=== PATIENT | male | born 1975 | race Caucasian/White ===

== ENCOUNTER 2016-10-21 17:39 | Emergency (ER) | payer MEDICAID, OTHER ==
[~2016-10-21] VITALS: Ht 177.8 cm; Wt 95.3 kg
--- NOTE | 2016-10-21 17:40 | NUR ---
PT CAME TO ER C/O SUICIDAL IDEATION PLAN IS TO OD WITH PILLS WANTS TO HURT HIMSELF. REMOVED PTS BELONINGS. PLACED ON MONITOR . VSS.
--- NOTE | 2016-10-21 18:00 | NUR ---
URINE COLLECTED SENT TO LAB
[2016-10-21 18:06] LABS: BASOPHILS # (AUTO) 0.1 /CMM (0.0-0.2); BASOPHILS % (AUTO) 0.9 % (0.0-2.0); EOSINOPHILS # (AUTO) 0.1 /CMM (0.0-0.7); EOSINOPHILS % (AUTO) 0.6 % (0.0-6.0); HEMATOCRIT 45 % (39-51); HEMOGLOBIN 15.3 g/dL (13.5-17.5); LYMPHOCYTES # (AUTO) 1.7 /CMM (0.8-4.8); LYMPHOCYTES % (AUTO) 19.3 % (20.0-44.0); MEAN CORPUSCULAR HEMOGLOBIN 32 PG (26.0-33.0); MEAN CORPUSCULAR HGB CONC 34 g/dl (31.0-36.0); MEAN CORPUSCULAR VOLUME 94 fL (80-96); MONOCYTES # (AUTO) 1.2 /CMM (0.1-1.30); MONOCYTES % (AUTO) 13.8 % (2.0-12.0); NEUTROPHILS # (AUTO) 5.5 /CMM (1.8-8.9); NEUTROPHILS % (AUTO) 65.4 % (43.0-81.0); PLATELET COUNT (AUTO) 315 /CMM (150-450); RDW COEFFICIENT OF VARIATION 12.4 (11.5-15.0); RED BLOOD CELL COUNT(AUTO) 4.81 MIL/uL (4.5-6.0); WHITE BLOOD COUNT (AUTO) 8.6 K/uL (4.3-11.0)
[2016-10-21 18:08] LABS: APPEARANCE,URINE Clear (CLEAR); BILIRUBIN,URINE SMALL (NEGATIVE); BLOOD, URINE Negative Ery/uL (NEGATIVE); COLOR,URINE Yellow (YELLOW); KETONES,URINE 15 (NEGATIVE); LEUKOCYTE ESTERASE ,URINE Negative (NEGATIVE); NITRITE, URINE Negative (NEGATIVE); PROTEIN,URINE Trace mg/dl (NEGATIVE); UGLUCOSE Negative (NEGATIVE)
--- NOTE | 2016-10-21 18:14 | NUR ---
REMOVE ALL PATIENTS BELONINGS. PT VERBALIZED SUICIDAL IDEATION.
[2016-10-21 18:16] LABS: PHENCYCLIDINE SCREEN,URINE NEGATIVE (NEGATIVE)
[2016-10-21 18:16] LABS: CALCIUM, SERUM 8.5 mg/dL (8.5-10.1); CARBON DIOXIDE 29 mmol/L (21-32); CHLORIDE 97 mmol/L (98-107); CREATININE 0.9 mg/dL (0.6-1.3); GFR 93 mL/min (>60); GLUCOSE 91 mg/dL (74-106); POTASSIUM 3.8 mmol/L (3.5-5.1); SODIUM SERUM 137 mmol/L (136-145); UREA NITROGEN, BLOOD 12 mg/dL (7-18)
[2016-10-21 18:18] LABS: CANNABINOID, URINE POSITIVE (NEGATIVE)
[2016-10-21 18:27] LABS: ADD URINE CULTURE NO; BACTERIA,URINE Rare /HPF (None Seen); RBC,URINE NONE SEEN /HPF (0-2); SQUAMOUS EPITHELIAL CELL,UR Rare /HPF (None Seen); WBC,URINE NONE SEEN /HPF (0-3)
[2016-10-21 18:29] LABS: ALANINE AMINOTRANSFERASE 202 U/L (12-78); ALBUMIN 4.3 g/dL (3.4-5.0); ALKALINE PHOSPHATASE 92 U/L (46-116); ASPARTATE AMINOTRANSFERASE 101 U/L (15-37); BILIRUBIN,DIRECT 0.3 mg/dL (0.0-0.2); BILIRUBIN,TOTAL 0.9 mg/dL (0.2-1.0)
[2016-10-21 18:30] LABS: ACETAMINOPHEN < 2 ug/ml (10-30); ALCOHOL, BLOOD < 3 mg/dL (0-0); SALICYLATE 2.6 mg/dL (2.8-20.0)
[2016-10-21] MEDS ORDERED: OLANZAPINE 5 MG/TAB.RAPDIS PO ONE (18:30)
[2016-10-21] MEDS ORDERED: OLANZAPINE 5 MG/TAB.RAPDIS ONE (18:47)
--- NOTE | 2016-10-21 19:23 | NUR ---
PT APPEARS TO BE SLIGHTLY ANXIOUS. PT REC'D A WARM BLANKET AND IS AWAITING EVAL BY ILLUSIONIST
--- NOTE | 2016-10-21 19:23 | NUR ---
REPORT GIVEN TO OVI
--- NOTE | 2016-10-21 20:45 | NUR ---
PT REC'D CRACKERS AND JUICE.
--- NOTE | 2016-10-21 21:31 | NUR ---
TRANSFER PAPERWORK IS IN THE CHART.
--- NOTE | 2016-10-21 21:50 | NUR ---
CALLED [facility] RE: TRANSPORT TO [facility] [place]. ETA = 1.5HRS. CHARGE NURSE IS AWARE.
[2016-10-21 22:01] VITALS: BP 138/87
--- NOTE | 2016-10-21 22:01 | NUR ---
PT IS GOING TO ROOM 631B.
--- NOTE | 2016-10-21 22:01 | NUR ---
REPORT GIVEN TO СВЕТЛАНА RODRIGUEZ AT [facility]
--- NOTE | 2016-10-21 22:51 | NUR ---
[facility] ARRIVED. REPORT GIVEN TO EMT AND COPY OF CHART GIVEN. VSS. CALLING СВЕТЛАНА RODRIGUEZ TO LET HER KNOW THAT THE PT IS LEAVING NOW.
--- NOTE | 2016-10-21 22:59 | NUR ---
CALLED [facility] RE: PT'S BELONGINGS IN ER. TEAM TO RETURN AND LABORATORY ASSOCIATE PT'S BELONGINGS.
== END 2016-10-21 22:56 ==
LOC: ER 17:43
DX: R45.851 Suicidal ideations (principal); I10 Essential (primary) hypertension; F10.20 Alcohol dependence, uncomplicated; F17.200 Nicotine dependence, unspecified, uncomplicated
CPT/HCPCS: 36415; 80048; 80076; 80305; 80329; 81001; 85025; 99285; A4606; G0480 ×2; Z7610; 81000-TC; G6039-TC

== ENCOUNTER 2017-03-04 20:19 | Emergency (ER) | payer MEDICAID, OTHER ==
[~2017-03-04] VITALS: Ht 180.3 cm; Wt 81.6 kg
[2017-03-04 20:27] VITALS: BP 144/78
[2017-03-04] MEDS ORDERED: ONDANSETRON HCL/PF 4 MG/2 ML VIAL ONE (20:49)
[2017-03-04 20:52] LABS: BASOPHILS % (AUTO) 0.8 % (0.0-2.0); EOSINOPHILS # (AUTO) 0.1 /CMM (0.0-0.7); EOSINOPHILS % (AUTO) 1.2 % (0.0-6.0); HEMATOCRIT 44 % (39-51); HEMOGLOBIN 14.6 g/dL (13.5-17.5); LYMPHOCYTES # (AUTO) 1.9 /CMM (0.8-4.8); LYMPHOCYTES % (AUTO) 31.1 % (20.0-44.0); MEAN CORPUSCULAR HEMOGLOBIN 31 PG (26.0-33.0); MEAN CORPUSCULAR HGB CONC 34 g/dl (31.0-36.0); MEAN CORPUSCULAR VOLUME 92 fL (80-96); MONOCYTES # (AUTO) 0.5 /CMM (0.1-1.30); MONOCYTES % (AUTO) 7.6 % (2.0-12.0); NEUTROPHILS # (AUTO) 3.5 /CMM (1.8-8.9); NEUTROPHILS % (AUTO) 59.3 % (43.0-81.0); PLATELET COUNT (AUTO) 316 /CMM (150-450); RDW COEFFICIENT OF VARIATION 12.9 (11.5-15.0); RED BLOOD CELL COUNT(AUTO) 4.76 MIL/uL (4.5-6.0)
[2017-03-04 20:59] LABS: CALCIUM, SERUM 8.5 mg/dL (8.5-10.1); CREATININE 0.8 mg/dL (0.6-1.3)
[2017-03-04] MEDS ORDERED: IV NS 0.9% 1,000 ML BAG IV ONE (21:00)
[2017-03-04] MEDS ORDERED: ONDANSETRON HCL/PF 4 MG/2 ML VIAL IVP ONE (21:00)
[2017-03-04 21:05] LABS: ALBUMIN 3.6 g/dL (3.4-5.0); BILIRUBIN,DIRECT 0.1 mg/dL (0.0-0.2); BILIRUBIN,TOTAL 0.4 mg/dL (0.2-1.0); TOTAL PROTEIN, SERUM 7.3 g/dL (6.4-8.2)
[2017-03-04] MEDS ORDERED: POTASSIUM CHLORIDE 20 MEQ TAB.PRT.SR PO ONE ×2 (21:15→21:30)
[2017-03-04] MEDS ORDERED: HYDROCODONE/APAP 5/325MG 1 EACH TABLET ONE (21:22)
[2017-03-04] MEDS ORDERED: HYDROCODONE/APAP 5/325MG 1 EACH TABLET PO ONE (21:30)
--- NOTE | 2017-03-04 21:37 | NUR ---
Patient discharged to home in stable condition. Written and verbal after care instructions given. Patient verbalizes understanding of instruction.IV removed. Catheter intact and site benign. Pressure and 4x4 applied to site. No bleeding noted.
== END 2017-03-04 21:38 | disposition home or self-care (01) ==
LOC: ER 20:24
DX: R10.84 Generalized abdominal pain (principal); F10.129 Alcohol abuse with intoxication, unspecified; I10 Essential (primary) hypertension; J45.909 Unspecified asthma, uncomplicated; F31.9 Bipolar disorder, unspecified; F17.200 Nicotine dependence, unspecified, uncomplicated; K21.9 Gastro-esophageal reflux disease without esophagitis; Z59.0 Homelessness
CPT/HCPCS: 36415; 80048; 80076; 83690; 85025; 99284; A4606; J7030; Z7610

== ENCOUNTER 2017-04-11 00:42 | Emergency (ER) | payer MEDICAID ==
[~2017-04-11] VITALS: Ht 177.8 cm; Wt 72.6 kg
--- NOTE | 2017-04-11 00:50 | NUR ---
TO BED 8 A 42 YO MALE PT C/O OVERALL BODY PAIN AND ON AND OFF SOB X 3 DAYS PT SPEAKING IN FULL SENTENCES. VSS. NO SOB NOTED. NAD NOTED. BREATHING EVEN AND UNLABORED. NONDIAPHORETIC. COMFORT MEASURES RENDERED. AWAITING FOR ER MD WHITE.
--- NOTE | 2017-04-11 00:55 | NUR ---
CXR AT BEDSIDE.
[2017-04-11] MEDS ORDERED: IBUPROFEN 400 MG TABLET ONE (01:32)
--- NOTE | 2017-04-11 01:39 | NUR ---
Patient discharged to home in stable condition. Written and verbal after care instructions given. Patient verbalizes understanding of instruction. Patient is ambulatory with steady gait, no further complaints.
--- NOTE | 2017-04-11 01:39 | NUR ---
motrin 800mg po given per Dr Jean's verbal order for generalized body pain.
[2017-04-11 01:41] VITALS: BP 134/84
[2017-04-13] MEDS ORDERED: IBUPROFEN 400 MG TABLET PO ONE (23:30)
== END 2017-04-11 01:41 | disposition home or self-care (01) ==
LOC: ER 00:46
DX: Z00.00 Encounter for general adult medical examination without abnormal findings (principal); M79.1 Myalgia; I10 Essential (primary) hypertension; J45.909 Unspecified asthma, uncomplicated; K21.9 Gastro-esophageal reflux disease without esophagitis; F17.200 Nicotine dependence, unspecified, uncomplicated; F31.9 Bipolar disorder, unspecified
CPT/HCPCS: 71010; 99283; A4606; Z7610

== ENCOUNTER 2017-04-27 21:28 | Emergency (ER) | payer MEDICAID ==
[~2017-04-27] VITALS: Ht 172.7 cm; Wt 72.6 kg
--- NOTE | 2017-04-27 21:50 | NUR ---
PT TAO FROM THE STREETS TO ER BED 15. ETOH. NO OBVIOUS TRAUMA NOTED. STABLE VITALS. AWAITING MD WHITE.
--- NOTE | 2017-04-27 22:03 | NUR ---
IV LINE STARTED BLOOD DRAWN AND SENT TO LAB.
[2017-04-27 22:14] LABS: BASOPHILS # (AUTO) 0.1 /CMM (0.0-0.2); BASOPHILS % (AUTO) 1.7 % (0.0-2.0); EOSINOPHILS # (AUTO) 0.1 /CMM (0.0-0.7); EOSINOPHILS % (AUTO) 0.9 % (0.0-6.0); HEMATOCRIT 37 % (39-51); HEMOGLOBIN 12.7 g/dL (13.5-17.5); LYMPHOCYTES # (AUTO) 2.4 /CMM (0.8-4.8); LYMPHOCYTES % (AUTO) 38.2 % (20.0-44.0); MEAN CORPUSCULAR HEMOGLOBIN 32 PG (26.0-33.0); MEAN CORPUSCULAR HGB CONC 34 g/dl (31.0-36.0); MEAN CORPUSCULAR VOLUME 92 fL (80-96); MONOCYTES # (AUTO) 0.7 /CMM (0.1-1.30); MONOCYTES % (AUTO) 11.1 % (2.0-12.0); NEUTROPHILS % (AUTO) 48.1 % (43.0-81.0); PLATELET COUNT (AUTO) 307 /CMM (150-450); RDW COEFFICIENT OF VARIATION 14.6 (11.5-15.0); RED BLOOD CELL COUNT(AUTO) 4.03 MIL/uL (4.5-6.0); WHITE BLOOD COUNT (AUTO) 6.2 K/uL (4.3-11.0)
[2017-04-27 22:27] LABS: CALCIUM, SERUM 8.1 mg/dL (8.5-10.1); CREATININE 0.7 mg/dL (0.6-1.3)
[2017-04-27 22:36] LABS: BILIRUBIN,DIRECT 0.1 mg/dL (0.0-0.2); BILIRUBIN,TOTAL 0.2 mg/dL (0.2-1.0); TOTAL PROTEIN, SERUM 6.7 g/dL (6.4-8.2)
[2017-04-27 22:37] LABS: SALICYLATE 2.1 mg/dL (2.8-20.0)
--- NOTE | 2017-04-28 01:10 | NUR ---
PT RESTING COMFORTABLY LEFT LATERAL ON BED. AWAKENS TO NAME. DENIES COMPLAINT AND RETURNS TO SLEEP. VSS, NAD NOTED. WILL CONT TO MONITOR.
--- NOTE | 2017-04-28 02:42 | NUR ---
IV removed. Catheter intact and site benign. Pressure and 4x4 applied to site. No bleeding noted.Patient given written and verbal discharge instructions. Patient verbalizes understanding of instructions. Patient is ambulatory with steady gait. Refuses offer of detention placement. Patient given list of available shelters in surrounding area.
[2017-04-28 02:46] VITALS: BP 132/80
== END 2017-04-28 02:47 | disposition home or self-care (01) ==
LOC: ER 21:35
DX: F10.129 Alcohol abuse with intoxication, unspecified (principal); I10 Essential (primary) hypertension; J45.909 Unspecified asthma, uncomplicated; K21.9 Gastro-esophageal reflux disease without esophagitis; F31.9 Bipolar disorder, unspecified; F30.9 Manic episode, unspecified; F17.200 Nicotine dependence, unspecified, uncomplicated; Z59.0 Homelessness
CPT/HCPCS: 36415; 80048-TC; 80076-TC; 85025-TC; A4606; G0480; J7030; Z7610

== ENCOUNTER 2017-05-02 11:51 | Emergency (ER) | payer MEDICAID ==
[~2017-05-02] VITALS: Ht 182.9 cm; Wt 79.4 kg
--- NOTE | 2017-05-02 11:55 | NUR ---
PT BIBRA FROM THE STREETS TO ER BED 11. PER REPORT, CONCERNED [facility] CALLED. PT IS SLEEPING IN THE STREETS AND C/O BEING SICK. ADMITS TO ETOH USE. NO OBVIOUS TRAUMA NOTED. PLACED ON MONITOR. STABLE VITALS NOTED. AWAITING MD WHITE.
--- NOTE | 2017-05-02 11:58 | NUR ---
CATIE MURILLO AT BEDSIDE FOR EVAL.
--- NOTE | 2017-05-02 14:31 | NUR ---
PT IS AWAKE. PROVIDED W/ FOOD AND ORAL HYDRATION. AMBULATORY W/ STEADY GAIT. D/C HOME IN STABLE CONDITION.
[2017-05-02 14:33] VITALS: BP 128/77
== END 2017-05-02 14:33 | disposition home or self-care (01) ==
LOC: ER 11:53
DX: F10.129 Alcohol abuse with intoxication, unspecified (principal)
CPT/HCPCS: 99283; A4606; Z7610